=== PATIENT | male | born 1990 | race Caucasian/White ===

== ENCOUNTER 2022-06-27 15:40 | Outpatient (CLI) | payer BC, SELFPAY ==
[2022-06-27 19:12] LABS: Alanine Aminotransferase 31 U/L (6-50); Albumin Level 4.4 g/dL (3.5-5.1); Alkaline Phosphatase 86 U/L (38-126); Anion Gap 11 mmol/L (8-16); Aspartate Amino Transferase 31 U/L (17-59); Bilirubin,Total 0.5 mg/dL (0.2-1.3); Blood Urea Nitrogen 13 mg/dL (9-20); Calcium 9.5 mg/dL (8.4-10.2); Carbon Dioxide 28 mmol/L (22-30); Chloride 102 mmol/L (98-107); Cholesterol 207 mg/dL (0-200); Estimated Glomerular Filt Rate > 60; Glucose 85 mg/dL (65-110); HDL Direct 38 mg/dL; Sodium 141 mmol/L (137-145); Triglycerides 118 mg/dL (<150)
[2022-06-27 19:22] LABS: LDL Cholesterol Direct 132 mg/dL
[2022-06-27 20:40] LABS: Hemoglobin A1C 5.7 % (<5.7)
== END 2022-06-27 15:41 | disposition home or self-care (01) ==
LOC: ANHGOSHLAB 15:48
PROVIDERS: PCP Emergency Medicine; Visit Provider Emergency Medicine
DX: E66.01 Morbid (severe) obesity due to excess calories (principal)
CPT/HCPCS: 36415; 80053; 80061; 83036; 84443

== ENCOUNTER 2023-09-20 08:09 | Outpatient (CLI) | payer BC, SELFPAY ==
[2023-09-20 19:19] LABS: Basophils Absolute Auto 0.1 K/mm3 (0.0-0.1); Basophils Percent Auto 1.1 % (0.2-1.2); Eosinophils Absolute Auto 0.1 K/mm3 (0-0.3); Hematocrit 49.6 % (42.0-52.0); Hemoglobin 15.5 g/dL (14.0-18.0); Immature Granulocyte Absolute 0.03 K/mm3 (0.00-0.031); Immature Granulocyte Percent A 0.5 % (0-0.5); Lymphocytes Absolute Auto 1.89 K/mm3 (0.9-3.2); Lymphocytes Percent Auto 28.4 % (18.3-44.2); Mean Corpuscular HGB Conc 31.3 g/dl (32-36); Mean Corpuscular Hemoglobin 28.8 pg (26-34); Mean Platelet Volume 9.4 fl (7.4-10.4); Monocytes Absolute Auto 0.7 K/mm3 (0.1-0.6); Monocytes Percent Auto 10.1 % (2.6-8.5); Neutrophils Absolute Auto 3.9 K/mm3 (1.3-6.7); Neutrophils Percent Auto 57.9 % (45.5-73.1); Platelet Count Result 323 k/mm3 (150-375); Red Blood Count 5.39 M/mm3 (4.6-6.20); Red Cell Distribution Width 13.2 % (11.5-14.5); White Blood Count 6.7 K/mm3 (4.5-10.0)
[2023-09-20 19:24] LABS: Alanine Aminotransferase 37 U/L (6-50); Albumin Level 4.3 g/dL (3.5-5.1); Alkaline Phosphatase 85 U/L (38-126); Anion Gap 9 mmol/L (8-16); Aspartate Amino Transferase 56 U/L (17-59); Bilirubin,Total 0.7 mg/dL (0.2-1.3); Blood Urea Nitrogen 17 mg/dL (9-20); Calcium 9.6 mg/dL (8.4-10.2); Carbon Dioxide 27 mmol/L (22-30); Chloride 101 mmol/L (98-107); Cholesterol 212 mg/dL (0-200); Estimated Glomerular Filt Rate > 60; Glucose 69 mg/dL (65-110); HDL Direct 42 mg/dL; Potassium 3.9 mmol/L (3.4-5.0); Sodium 137 mmol/L (137-145); Triglycerides 124 mg/dL (<150)
[2023-09-20 19:25] LABS: LDL Cholesterol Direct 130 mg/dL
[2023-09-20 21:34] LABS: Hemoglobin A1C 5.8 % (<5.7)
== END 2023-09-20 08:10 | disposition home or self-care (01) ==
LOC: ANHGOSHLAB 08:11
PROVIDERS: PCP Emergency Medicine; Visit Provider Emergency Medicine
DX: E66.01 Morbid (severe) obesity due to excess calories (principal)
CPT/HCPCS: 36415; 80053; 80061; 83036; 84443; 85025

== ENCOUNTER 2023-10-08 10:00 | Outpatient (CLI) | payer BC, SELFPAY ==
--- NOTE | 2023-10-09 18:37 | WPDHOMESLEEP ---
Sleep Study - Home Unattended Date of Study: 10/08/23 Ordering Provider: Chris Mckinney MD Interpreting Provider: Vanessa Fofana MD Home Sleep Study Type: Watch PAT Height: 1.73 m Weight: 142.882 kg Body Mass Index: 47.9 Neck Circumference (inches): 20.5 [place]: 16 Reason for Sleep Study Hypersomnolence Sleep History Wesley Zaragoza is a 33-year-old man with loud snoring and episodes of gasping for breath at night. He has not been able to sleep through the night for years. Over 10 years ago, he was in the [employer] with problems sleeping through the night. He occasionally awakens from sleep feeling short of breath. He occasionally wakes at night with heartburn, belching or coughing.??He always snores, and always snores loudly enough that others complain. He occasionally has trouble sleeping when he has a cold. He frequently wakes up gasping for breath during the night. He constantly has breathing problems at night. He occasionally sweats excessively at night. He rarely notices his heart pounding or beating irregularly during the night. He constantly falls asleep during the day. He constantly falls asleep involuntarily, occasionally falls asleep while driving. He rarely experiences loss of muscle tone with strong emotion. He constantly has daytime difficulty at work due to excessive sleepiness, works as a supervisor maintenance. He frequently feels paralyzed on waking or falling asleep. He frequently experiences vivid dreams upon waking or falling asleep. He never feels afraid of going to sleep. He constantly has nightmares. He frequently recalls his dreams. He frequently has thoughts racing through his mind. He rarely feels sad or depressed. He rarely feels anxiety. He never notices parts of his body jerk. He rarely kicks during the night. He rarely feels crawling or aching feelings in his legs. He never feels leg pain at night. He occasionally has morning jaw pain, frequently grinds his teeth at night. He rarely feels bothered by pain during the day, never is awakened by pain during the night. He occasionally wakes up feeling stiff in the morning, and he rarely wakes feeling sore or achy. He rarely awakens with pain in his neck, spine, or joints. He has fatigue and insomnia. He reports a 35 lb weight gain in the last year. Normal bedtime is 9:00 p.m., falling asleep within minutes, waking 3 times at night. Wake time is between 1:00 am and 2:00 a.m. He typically gets 8 hours of sleep per night. on weekends his bedtime is 10:00 p.m. and his wake time is between 3 and 4:00 a.m.. After waking he stays in the bed for 10 minutes or fewer. He works a straight days shift, no rotating schedule. Sometimes he falls asleep too fast to enjoy intimacy. He does not generally takes naps however a short nap lsting 10-15 minutes may be refreshing. He feels better inthe evening compared to other times of the day. Habits:??Tobacco: never smoker Caffeine: 2 usually per day, 3 caffeinated beverages if he feels sluggish. Alcohol:none Recreational substances: none PMFSH Past Medical History Medical History (Updated 10/09/23 @ 20:37 by Vanessa Fofana MD) ADHD Morbid obesity Suspected sleep apnea Social History Social History Smoking status: Never smoker Alcohol intake: never Substance use type: does not use Lack of Transportation: No Lack of Food: Never True Current Housing: I Have Housing Concerned About Future Housing: No Difficulty Paying Gas/Electric Bills: No Difficulty Paying for Meds: No Currently Unemployed: No Education: Trade/Vocational Certificate Difficulty w/ Childcare or Family Care: No Living arrangements: with family Occupation/Education: occupation Additional occupation/education comments: MAINTENANCE Spiritual care concerns: No Agree to blood products: Yes Medications Home Medications Medication Instructions Recorded
[2023-10-09 18:43] VITALS: BMI 47.9
== END 2023-10-09 07:30 | disposition home or self-care (01) ==
LOC: ANHCSM 10:00
PROVIDERS: PCP Emergency Medicine; Visit Provider Emergency Medicine
DX: G47.33 Obstructive sleep apnea (adult) (pediatric) (principal); R29.818 Other symptoms and signs involving the nervous system; Z68.42 Body mass index [BMI] 45.0-49.9, adult
CPT/HCPCS: 95800

== ENCOUNTER 2023-10-31 10:15 | Outpatient (CLI) | payer BC, SELFPAY ==
[2023-11-06 18:16] VITALS: BMI 47.9
--- NOTE | 2023-11-06 18:16 | WPDSLEEPSTUD ---
Sleep Study Date of Study: 10/31/23 Ordering Provider: Chris Mckinney MD Interpreting Physician: Yvonne Sorenson DO Sleep Study Type: CPAP Titration Height: 1.73 m Weight: 142.882 kg Body Mass Index: 47.9 Neck Circumference (inches): 20 [place]: 16 Reason for Sleep Study The patient had a WatchPAT home sleep test on 10/08/2023 that showed an overall AHI of 136.6 with desaturation down to 52%. Sleep History Wesley Zaragoza is a 33-year-old man with loud snoring and episodes of gasping for breath at night. He has not been able to sleep through the night for years. Over 10 years ago, he was in the [employer] with problems sleeping through the night. He occasionally awakens from sleep feeling short of breath. He occasionally wakes at night with heartburn, belching or coughing.??He always snores, and always snores loudly enough that others complain. He occasionally has trouble sleeping when he has a cold. He? frequently wakes up gasping for breath during the night. He? constantly has breathing problems at night. He occasionally sweats excessively at night. He? rarely notices his heart pounding or beating irregularly during the night. He? constantly falls asleep during the day. He? constantly falls asleep involuntarily,? occasionally falls asleep while driving. He rarely experiences loss of muscle tone with strong emotion. He constantly has daytime difficulty at work due to excessive sleepiness, works as a operations and maintenance technican.? He frequently feels paralyzed on waking or falling asleep. He frequently experiences vivid dreams upon waking or falling asleep. He never feels afraid of going to sleep. He?constantly has nightmares. He frequently recalls his dreams. He frequently has thoughts racing through his mind. He rarely feels sad or depressed. He rarely feels anxiety. He never notices parts of his body jerk. He rarely kicks during the night. He rarely feels crawling or aching feelings in his legs. He never feels leg pain at night. He occasionally has morning jaw pain, frequently grinds his teeth at night.? He rarely feels bothered by pain during the day,? never is awakened by pain during the night. He occasionally wakes up feeling stiff in the morning, and he rarely wakes feeling sore or achy.? He rarely awakens with pain in his neck, spine, or joints. He has fatigue and insomnia.? He reports a 35 lb weight gain in the last year. Normal bedtime is 9:00 p.m., falling asleep within minutes, waking 3 times at night. Wake time is between 1:00 am and 2:00 a.m.? He typically gets 8 hours of sleep per night.? on weekends his bedtime is 10:00 p.m. and his wake time is between 3 and 4:00 a.m..? After waking he stays in the bed for 10 minutes or fewer.? He works a straight days shift, no rotating schedule.? Sometimes he falls asleep too fast to enjoy intimacy. He does not generally takes naps however a short nap lsting 10-15 minutes may be refreshing.? He feels better? inthe evening compared to other times of the day.? Habits:??Tobacco: never smoker? ? ? Caffeine: 2 usually per day, 3 caffeinated beverages if he feels sluggish. ? Alcohol:none ? ? Recreational substances: none PMFSH Past Medical History Medical History ADHD Morbid obesity Suspected sleep apnea Social History Social History Smoking status: Never smoker Alcohol intake: never Substance use type: does not use Lack of Transportation: No Lack of Food: Never True Current Housing: I Have Housing Concerned About Future Housing: No Difficulty Paying Gas/Electric Bills: No Difficulty Paying for Meds: No Currently Unemployed: No Education: Trade/Vocational Certificate Difficulty w/ Childcare or Family Care: No Living arrangements: with family Occupation/Education: occupation Additional occupation/education comments: MAINTENANCE Spiritual care concerns: No Agree to blood
== END 2023-11-01 06:53 | disposition home or self-care (01) ==
PROVIDERS: PCP Emergency Medicine; Visit Provider Emergency Medicine
DX: G47.33 Obstructive sleep apnea (adult) (pediatric) (principal)
CPT/HCPCS: 95811

== ENCOUNTER 2024-11-26 09:49 | Outpatient (CLI) | payer BC, SELFPAY ==
[2024-11-26 20:15] LABS: Basophils Absolute Auto 0.1 K/mm3 (0.0-0.1); Basophils Percent Auto 1.2 % (0.2-1.2); Eosinophils Absolute Auto 0.1 K/mm3 (0-0.3); Eosinophils Percent Auto 1.8 % (0-4.4); Hematocrit 47.1 % (42.0-52.0); Hemoglobin 15.1 g/dL (14.0-18.0); Immature Granulocyte Absolute 0.03 K/mm3 (0.00-0.031); Immature Granulocyte Percent A 0.5 % (0-0.5); Lymphocytes Absolute Auto 1.59 K/mm3 (0.9-3.2); Lymphocytes Percent Auto 26.5 % (18.3-44.2); Mean Corpuscular HGB Conc 32.1 g/dl (32-36); Mean Corpuscular Volume 90.6 fl (80-100); Mean Platelet Volume 9.3 fl (7.4-10.4); Monocytes Absolute Auto 0.7 K/mm3 (0.1-0.6); Monocytes Percent Auto 11.5 % (2.6-8.5); Neutrophils Absolute Auto 3.5 K/mm3 (1.3-6.7); Neutrophils Percent Auto 58.5 % (45.5-73.1); Platelet Count Result 318 k/mm3 (150-375); Red Cell Distribution Width 12.5 % (11.5-14.5)
[2024-11-26 21:11] LABS: Free T4 Free Thyroxine 1.12 ng/dL (0.78-2.19); Vitamin D 25 Hydroxy 29.1 ng/mL
[2024-11-26 21:26] LABS: Alanine Aminotransferase 32 U/L (6-50); Albumin Level 4.5 g/dL (3.5-5.1); Alkaline Phosphatase 82 U/L (38-126); Anion Gap 11 mmol/L (4-12); Aspartate Amino Transferase 36 U/L (17-59); Bilirubin,Total 0.3 mg/dL (0.2-1.3); Blood Urea Nitrogen 16 mg/dL (9-20); Calcium 9.7 mg/dL (8.4-10.2); Carbon Dioxide 26 mmol/L (22-30); Chloride 103 mmol/L (98-107); Cholesterol 234 mg/dL (0-200); Estimated Glomerular Filt Rate > 60; Glucose 72 mg/dL (65-110); HDL Direct 55 mg/dL; Potassium 4.6 mmol/L (3.4-5.0); Sodium 140 mmol/L (137-145); Triglycerides 89 mg/dL (<150)
[2024-11-26 21:38] LABS: LDL Cholesterol Direct 138 mg/dL
[2024-11-26 22:00] LABS: Hemoglobin A1C 5.4 % (<5.7)
== END 2024-11-26 09:50 | disposition home or self-care (01) ==
LOC: ANHGOSHLAB 09:50
PROVIDERS: PCP Family Medicine; Visit Provider Family Medicine
DX: Z00.00 Encounter for general adult medical examination without abnormal findings (principal); R53.83 Other fatigue; E55.9 Vitamin D deficiency, unspecified; R73.03 Prediabetes; E78.5 Hyperlipidemia, unspecified
CPT/HCPCS: 36415; 80053; 80061; 82306; 83036; 84439; 84443; 85025

== ENCOUNTER 2025-04-10 09:25 | Outpatient (CLI) | payer BC, SELFPAY ==
--- OUTSIDE RECORDS SUMMARY | 2025-04-10 09:52 | XMS_ITS | Clinical Summary ---
Author Organization [facility] Address [address] [place] [id number] Care Team Providers Care Clinical Counselor Name Role Phone Patient, None Per Primary Care Provider Unavaila ble Source Comments This disclosure is being made pursuant to the [employer] program and maynot contain all information available regarding this patient.[facility] Allergies No known active allergies Medications No known medications Active Problems Problem Noted Date Diagnosed Date Obesity 11/03/2014 Family History Medical History Relation Name Comments Drug abuse Father Mental illness Father Hearing loss Maternal Grandfather Breast cancer Maternal Grandmother Diabetes Maternal Grandmother No Known Problems Mother Stroke Paternal Grandfather No Known Problems Paternal Grandmother Relation Name Status Comments Father Alive Maternal Grandfather Alive Maternal Grandmother Alive Mother Alive Paternal Grandfather Alive Paternal Grandmother Alive Social History Tobacco Use Types Packs/Day Years Used Date Smoking Tobacco: Never Smokeless Tobacco: Never Alcohol Use Standard Drinks/Week Comments Yes 6 (1 standard drink = 0.6 oz pur e alcohol) PHQ-2 Answer Date Recorded PHQ-2 Score 0 05/20/2019 Sex and Gender Information Value Date Recorded Sex Assigned at Not on file Legal Sex Male 11:38 AM CDT Gender Identity Not on file Sexual Orientation Not on file Last Filed Vital Signs Vital Sign Reading Time Taken Comments Blood Pressure 136/84 05/20/2019 11:47 AM CDT Pulse 82 05/20/2019 11:47 AM CDT Temperature 36.6 C (97.8 F) 05/20/2019 11:47 AM CDT Respiratory Rate 16 05/20/2019 11:47 AM CDT Oxygen Saturation 97% 10/10/2016 2:54 PM CDT Inhaled Oxygen Concentration - - Weight 123.8 kg (273 lb) 05/20/2019 11:47 AM CDT Height 172.7 cm (5' 8) 05/20/2019 11:47 AM CDT Body Mass Index 41.51 05/20/2019 11:47 AM CDT Plan of Treatment Health Maintenance Due Date Last Done Comments Lab-Hepatitis C Screening 1989 Hepatitis B Vaccine (1 of 3 - 19+ 3-dose series) 2008 Tetanus/Pertussis Vaccine Teen/Adult (1 - Tdap) 2008 HPV Vaccine (9-26yo & Shared Decision 27-45yo) (1 - 3-dose SCDM series) 2016 Annual Wellness Visit 05/20/2020 05/20/2019 Lab-Cholesterol Screening 05/21/2024 05/21/2019 COVID-19 Vaccine (3 - 2024-2 6 season) 2025 10/01/2020, 09/10/2020 Influenza Vaccine (#1) 2025 Zoster (Shingles) Vaccine 50 + (1 of 2) 2039 RSV Adult (1 - 1-dose 75+ series) 2064 HIB Vaccine Aged Out No longer eligi ble based on patient's age to complete this topic Hepatitis A Vaccine Aged Out No longe r eligible based on patient's age to complete this topic IPV Vaccine Aged Out No longer eligi ble based on patient's age to complete this topic Meningococcal Conjugate Vaccine Aged Out No longer eligible b ased on patient's age to complete this topic Pneumococcal Vaccines 0-49 yo Aged Out No longer eligible based on patient's age to complete this topic RSV < 20 Months Aged Out No longer el igible based on patient's age to complete this topic Procedures Procedure Name Priority Date/Time Associated Diagnosis Comments LIPID PANEL Routine 05/21/2019 8:50 AM CDT Well adult exam from Last 3 Months or Most Recently Relevant to Health Maintenance Results * Lipid panel (05/21/2019 8:50 AM CDT) Cholesterol 184 50 - 200 mg/dL 05/21/2019 6:52 PM CDT [facility] Comment: ---- Cholesterol Guidelines: Optimal: <200 mg/dL Borderline: 200-240 mg/dL High Risk: >240 mg/dL Triglycerides 116 20 - 150 mg/dL 05/21/2019 6:52 PM CDT [facility] Comment: ---- Interpretation of Triglycerides: Normal: 20-150 mg/dL Borderline High: 150-199 mg/dL High: 200-499 mg/dL Very High: >/= 500 mg/dL HDL Cholesterol 49 40 - 92 mg/dL 05/21/2019 6:52 PM CDT [facility] Comment: ---- Interpretation of HDL values: Males: Favorable: >55 mg/dL Moderate Risk: 35-55 mg/dL Elevated Risk: <35 mg/dL Females: Favorable: >65 mg/dL Moderate Risk: 45-65 mg/dL Elevated Risk: <45 mg/dL LDL 112 1 - 129 mg/dL 05/21/2019 6:52 PM CDT [facility] VLDL Cholesterol 23 0 - 40 mg/dL 05/21/2019 6:52 PM CDT [facility] Cholesterol/HDL Ratio 3.8 05/21/2019 6:52 PM CDT [facility] Serum specimen (specimen) 05/21/2019 8:50 AM CDT 05/21/2019 5:19 PM CDT Cristofer Lamb MD LAB BLOOD ORDERABLES Final Resu lt [facility] [address] [place], [place] [facility] [address] [place] [address] from Last 3 Months or Most Recently Relevant to Health Maintenance Insurance [employer] Care Teams Clinical Counselor Relationship Specialty Start Date End Date Patient, None Per PCP - General 10/25/22
[2025-04-10 19:15] LABS: Cholesterol 227 mg/dL (0-200); HDL Direct 43 mg/dL; Triglycerides 123 mg/dL (<150)
== END 2025-04-10 09:26 | disposition home or self-care (01) ==
LOC: ANHGOSHLAB 09:26
PROVIDERS: PCP Family Medicine; Visit Provider Family Medicine
DX: E78.2 Mixed hyperlipidemia (principal)
CPT/HCPCS: 36415; 80061